=== PATIENT | male | born 1945 | race American Indian/Alaskan Native ===

== ENCOUNTER 2020-09-20 08:11 | Day surgery (SDC) | payer OTHER ==
[2020-09-16 10:07] LABS: Hematocrit 41.7 % (35.5-45.6); Hemoglobin 13.8 gm/dl (11.8-15.2); Mean Corpuscular HGB Conc 33 % (32-34); Mean Corpuscular Volume 93 fl (84-94); Platelet Count 173 K/mm3 (140-440); Red Blood Count 4.48 M/mm3 (3.65-5.03); Red Cell Distribution Width 13.9 % (13.2-15.2)
[2020-09-16 10:23] LABS: Alanine Aminotransferase 40 units/L (7-56); Albumin 3.7 g/dL (3.9-5); BUN/Creatinine Ratio 10; Blood Urea Nitrogen 10 mg/dL (9-20); Calcium 9.2 mg/dL (8.4-10.2); Hemolysis Index 10
--- NOTE | 2020-09-16 10:46 | Anesthesia Consultation ---
Anesthesia Consult and Med Hx Date of service: 09/16/20 - Airway Anesthetic Teeth Evaluation: Partials ROM Head & Neck: Adequate Mental/Hyoid Distance: Adequate Mallampati Class: Class II Intubation Access Assessment: Good - Pre-Operative Health Status ASA Pre-Surgery Classification: ASA3 Proposed Anesthetic Plan: General - Pulmonary Hx Smoking: No Hx Respiratory Symptoms: No (+2FS) Hx Sleep Apnea: No (CHRISTIAN PRE SCREEN HIGH RISK) - Cardiovascular System Hx Hypertension: Yes (OFF MEDS X 5 YRS) Hx Coronary Artery Disease: No (Pt reports a negative ETT one year ago) Hx Cardia Arrhythmia: Yes (AFIB on Pradaxa) - Hematic Hx Anemia: Yes ( CHILD ONLY) Hx Sickle Cell Disease: No - Other Systems Hx Cancer: No Hx Obesity: No - Additional Comments Anesthesia Medical History Comments: [facility] Patient-cardiac records were requested and [facility] didn't send them.
[~2020-09-20 08:11] MED LIST: ACETAMINOPHEN 325 MG TAB PO NR; CELECOXIB 200 MG CAP PO NR; LACTATED RINGERS 1,000 ML IV SCH; MAGNESIUM OXIDE 400 MG TAB PO NR; MIDAZOLAM 2 MG/2 ML INJ IV NR
[2020-09-20 09:20] LABS: INR 0.98 (0.87-1.13); Partial Thromboplastin Time 27.7 Sec. (24.2-36.6)
[2020-09-20] MEDS ORDERED: GENTAMICIN 160 MG in SODIUM CHLORIDE 0.9% 100 ML IV ONE (09:31)
--- NOTE | 2020-09-20 09:55 | Anesthesia Day of Surgery ---
Anesthesia Day of Surgery - Day of Surgery Patient Examined: Yes Patient H&P Reviewed: Yes Patient is NPO: Yes Beta Blockers: Yes (sotalol today AM)
[2020-09-20] MEDS ORDERED: fentaNYL 100 MCG/2 ML INJ IV PRN (09:56)
[2020-09-20] MEDS ORDERED: ONDANSETRON 4 MG/2 ML INJ IV PRN (09:56)
[2020-09-20] MEDS ORDERED: ceFAZolin/STERILE WATER 2 GM/20 ML SYRINGE IV NR (10:00)
[2020-09-20] MEDS ORDERED: propofoL 200 MG/20 ML VIAL IV ONE (11:05)
[2020-09-20] MEDS ORDERED: ePHEDrine SULFATE 50 MG/1 ML INJ ONE (11:23)
[2020-09-20] MEDS ORDERED: WATER FOR IRRIG STERILE 1,500 ML BOTTLE IR ONE (11:32)
[2020-09-20] MEDS ORDERED: ONDANSETRON 4 MG/2 ML INJ ONE (11:50)
[2020-09-20] MEDS ORDERED: GLYCOPYRROLATE 0.4 MG/2 ML INJ ONE (11:50)
--- NOTE | 2020-09-20 12:25 | Post Operative Note ---
Date of procedure: 09/20/20 Pre-op diagnosis: inc psa hull Post-op diagnosis: same Findings: as above Procedure: cyst turp pus bx Anesthesia: GETA Surgeon: JOSE ANTONIO LOZANO Estimated blood loss: minimal Pathology: list (prostate) Specimen disposition: to lab Condition: stable Disposition: PACU
--- NOTE | 2020-09-20 12:26 | Discharge Summary ---
Short Stay Discharge Plan Activity: other (no straining ) Weight Bearing Status: Full Weight Bearing Diet: low fat, low salt Special Instructions: other (inc fluids ) Durable Medical Equipment Needed Upon Discharge: other (miller ) Follow up with: [facility] [Primary Care Provider] - 7 Days JOSE ANTONIO LOZANO MD [Staff Physician] - 7 Days
--- NOTE | 2020-09-20 12:40 | Ultrasound Report ---
TRANSRECTAL PROSTATE ULTRASOUND INDICATION: Enlarged prostate gland. COMPARISON: None available. FINDINGS: Limited sonographic evaluation of the prostate gland was performed to guide biopsy. The prostate glan d measures 4.8 x 2.5 x 3.7 cm with a volume of 22.4 cc. IMPRESSION: Limited prostate ultrasound for guidance of biopsy. Please see the procedure report for further detai ls. Signer Name: Obie Anand MD Signed: 09/20/2020 12:36 PM Workstation Name: [id number]
--- NOTE | 2020-09-20 14:37 | Post Anesthesia Evaluation ---
- Post Anesthesia Evaluation Patient Participated: Yes Airway Patent: Yes Stable Respiratory Function: Yes Nausea/Vomiting: No Temp > 96.8F: Yes Pain Manageable: Yes Adequeate Hydration: Yes Anesthesia Complications: No
--- NOTE | 2020-09-20 15:32 | Operative Report ---
PREOPERATIVE DIAGNOSES: Increasing PSA, bladder outlet obstruction, lots of ____ trabeculation. POSTOPERATIVE DIAGNOSES: Increasing PSA, bladder outlet obstruction, lots of ____ trabeculation. DESCRIPTION OF PROCEDURE: Prostate ultrasound with biopsies focusing on the left side anteriorly where there was lesion on MRI and multiple biopsies were obtained under ultrasound guidance. Cystoscopy showed severe trabeculation. Pictures were taken with an elevated bladder neck. The resection was carried out circumferentially, but mostly on the left lobe, specimen was sent to pathology. Hemostasis was excellent. No significant bleeding. We just basically resected the ____ portion of the left lobe bladder neck. The patient tolerated the procedure well. Minimal blood loss, less than 50 mL. Brought to recovery in stable condition. He has a catheter Rodriguez drip. Hopefully, he will go home today with the catheter. JOB# [id number] EDD/AUBREY
[2020-09-20 17:00] VITALS: BP 150/75
== END 2020-09-20 17:10 | disposition home or self-care (01) ==
LOC: OR 08:11
PROVIDERS: ATTEND Urology
DX: R97.20 Elevated prostate specific antigen [PSA] (principal); N40.0 Benign prostatic hyperplasia without lower urinary tract symptoms; I48.0 Paroxysmal atrial fibrillation; I42.9 Cardiomyopathy, unspecified; I25.10 Atherosclerotic heart disease of native coronary artery without angina pectoris; E78.00 Pure hypercholesterolemia, unspecified; I10 Essential (primary) hypertension; Z98.890 Other specified postprocedural states; Z86.19 Personal history of other infectious and parasitic diseases; Z87.01 Personal history of pneumonia (recurrent); Z90.79 Acquired absence of other genital organ(s); Z87.440 Personal history of urinary (tract) infections; Z79.899 Other long term (current) drug therapy; Z86.2 Personal history of diseases of the blood and blood-forming organs and certain disorders involving the immune mechanism
CPT/HCPCS: 36415; 52601; 55700; 76872; 80053; 85027; 85610; 85730; 86850; 86900; 86901; 88305; 93005; J0690; J1580; J2250; J2405; J2704; J3010; J7120; U0003